=== PATIENT | female | born 1985 | race Two or more races ===

== ENCOUNTER 2025-01-20 03:26 | Emergency (ER) | payer MEDICARE, SELFPAY ==
[2025-01-20 03:27] VITALS: BP 137/96; PULSE 98; RESP 18; TEMP 36.9; O2SAT 97; BMI 25.0
== END 2025-01-20 03:58 | disposition left against medical advice (07) ==
LOC: SERX 03:56
PROVIDERS: Emergency Provider Emergency Medicine
DX: Z53.21 Procedure and treatment not carried out due to patient leaving prior to being seen by health care provider (principal)
CPT/HCPCS: 99281